=== PATIENT | female | born 1955 | race Caucasian/White ===

== ENCOUNTER 2025-06-20 15:03 | Inpatient (IN) | payer MEDICARE, MEDICAID ==
[~2025-06-20] VITALS: Ht 160 cm; Wt 60.7 kg
--- NOTE | 2025-06-20 15:23 | ELECTROCARDIOGRAPH REPORT ---
[facility] Test Date: 2025-06-20 Test Time: 15:22:47 Pat Name: EROS LINO Department: [facility]-ER Patient ID: [facility]-[id number] Room: [place] [id number] Gender: F Historical Guide: : 1955 Requested By: CLARY ARANDA Order Number: [id number] Reading MD: Dr. ESTEFANI Titus Measurements Intervals [place] Rate: 62 P: 45 DC: 173 QRS: 88 QRSD: 99 T: -3 QT: 421 QTc: 428 Interpretive Statements Sinus rhythm Borderline right axis deviation Borderline repolarization abnormality Electronically Signed On 06-21-2025 13:09:[address] ESTEFANI Titus Please click the below link to view image of tracing.
[2025-06-20 15:43] LABS: MEAN PLATELET VOLUME 6.6 FL (7.4-10.4); RED CELL DISTRIBUTION WIDTH 13.7 % (11.5-14.5)
[2025-06-20 16:10] LABS: CREATININE 0.90 MG/DL (0.40-0.90); PRO BRAIN NATRIURETIC PEPTIDE 62 PG/ML (0-125); TOTAL CARBON DIOXIDE 27.1 MMOL/L (24-32); eCRCL 47 ML/MIN; eGFR 62 ML/MIN
--- NOTE | 2025-06-20 16:10 | RADIOLOGY REPORT ---
CHEST RADIOGRAPH Indication: CP Technique: Single frontal view of the chest was obtained Comparison: None FINDINGS: Lines and Tubes: None Lungs: No focal consolidation. Pleura: No effusion. No pneumothorax. Cardiomediastinal contours: Unremarkable Bones: No acute osseous abnormality. IMPRESSION: 1. No acute cardiopulmonary disease.
--- NOTE | 2025-06-20 18:51 | Physician Documentation ---
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 She happened to check her blood pressure at home which was markedly elevated. This is made her come in. She denies any chest pain or chest discomfort, denies any shortness a breath. This is unusual for her to feel the way she is feeling but she can not describe it in any particular discrete way. She has been seen her lining setter recently for manipulation of her blood pressure medications. She does not feel that her blood pressure medications are working out for her. No concern for tobacco, alcohol or illicit substances. Medication Reconciliation Allergies: Coded Allergies: [id number] Reductase Inhibitor (Verified Allergy, Unknown, ABD PAIN AND ELEVATED CREATININE, 06/20/25) Sulfa (Sulfonamide Antibiotics) (Verified Allergy, Unknown, HIVES, 06/20/25) Review of Systems ROS 10 point review of systems was performed and unless noted above in HPI is negative for acute process/complaint. Physical Exam Physical Exam Vital Signs: Temperature: 97.9, Source: Temporal, Heart Rate: 65, Respiratory Rate: 10, BP: 155/81, Pulse Oximetry: 99, Weight: 60.700 Oxygen Flow Rate: 0 Physical Exam GENERAL: Awake, alert, oriented, GCS 15, no apparent distress, non-toxic appearing, answers questions, follows commands appropriately. Examined in bed 14. HEENT: Atraumatic, normocephalic, pupils equal, extraocular muscles intact, sclerae anicteric, mucus membranes moist, oropharynx is clear, no stridor. NECK: supple, full active range of motion, trachea midline, no thyromegaly, no lymphadenopathy, no JVD. CARDIOVASCULAR: regular rate/rhythm, no murmurs/gallops/rubs, Pulses are 2+ in all extremities and symmetric. Capillary refill less than 2 seconds. PULMONARY: Nonlabored, good air movement ,no respiratory distress, speaking in full sentences, clear to auscultation bilaterally, no wheezing, no ronchi, no rales, no accessory muscle use. GASTROINTESTINAL: Soft, non-tender, non-distended, normal active bowel sounds, no organomegaly, no pulsatile masses, no CVA tenderness. NEUROLOGIC: Lucid with normal mental status. Normal facial symmetry. Moves all extremities symmetrically and with purpose. No truncal ataxia. Speech is fluid without evidence of dysarthria or aphasia, no focal deficits appreciated. MUSCULOSKELETAL: There is full range of motion of all extremities. There is no joint pain or joint swelling or joint erythema. There is no muscle pain or tenderness or swelling. EXTREMITIES: warm, well-perfused, no cyanosis, no clubbing, no edema, no acute deformities. Skin: warm, dry, no rashes or lesions, no jaundice, no petechiae orpurpura. No ecchymosis. PSYCHIATRIC: Normal affect, normal insight, normal concentration. Focused exam: [] Progress Results/Orders Results/Orders Vital Signs 06/20/25 06/20/25 06/20/25 06/20/25 15:14 16:36 16:55 16:55 Temp 97.9 Pulse 70 64 Resp 16 16 16 B/P (MAP) 161/89 177/89 (118) Pulse Ox 99 68 99 O2 Delivery Room Air* O2 Flow Rate 0 0 FiO2 N/A 06/20/25 17:49 Pulse 65 Resp 10 B/P (MAP) 155/81 (105) Pulse Ox 99 Laboratory Tests Test 06/20/25 15:26 06/20/25 17:30 White Blood Count 8.0 Red Blood Count 4.82 Hemoglobin 14.1 Hematocrit 40.5 Mean Corpuscular Volume 84.1 Mean Corpuscular Hemoglobin 29.3 Mean Corpuscular Hemoglobin Concent 34.9 Red Cell Distribution Width 13.7 Platelet Count 467 H Mean Platelet Volume 6.6 L Neutrophils (%) (Auto) 69.6 Lymphocytes (%) (Auto) 22.1 Monocytes (%) (Auto) 5.9 Eosinophils (%) (Auto) 1.3 Basophils (%) (Auto) 1.1 H Neutrophils # (Auto) 5.5 Lymphocytes # (Auto) 1.8 Monocytes # (Auto) 0.5 Eosinophils # (Auto) 0.1 Basophils # (Auto) 0.1 CBC Comment Sodium Level 137 Potassium Level 3.4 L Chloride Level 102 Carbon Dioxide Level 27.1 Anion Gap 8 Blood Urea Nitrogen 21 H Creatinine 0.90 Estimated GFR/1.73 m2 62 BUN/Creatinine Ratio 23.3 H Glucose Level 121 H Calcium Level 9.0 Troponin I High Sensitivity 190 *H 180 *H Pro-B-Type Natriuretic Peptide 62 Albumin 4.1 Chemistry Comments Troponin I High Sens Percent Delta 5 Troponin I Hi Sens Absolute Change -10 EKG/XRAY/CT/US/VASC/MRI EKG : Additional Comment EKG was obtained and interpreted by myself shows sinus rhythm of 62, normal W[place] interval, narrow QRS, no QT prolongation, normal axis, no STEMI. Medical Decision Making Additional information obtaine: N/A Findings Facility Status: ED Holds, RME process The plan was discussed with the patient, who demonstrates clear understanding of the plan and is in agreement with the plan unless otherwise noted in the chart. All questions have been answered, all concerns were addressed unless otherwise documented. I was available throughout their ED stay for frequent reassessment and questions. Differential Diagnoses (considered and possible or likely): [Differential for not feeling quite right in the elderly female who is fairly large and includes but not limited to hypoglycemia, electrolyte derangement, urinary tract infection with a pneumonia, occult bacteremia, ACS, CHF, unlikely to be PE, unlikely to be acute intracranial process, given history of hypertension, hypertensive urgency, hypertensive emergency with a without end-organ damage he had also been considered] ??Differential Diagnoses (considered and unlikely, not requiring evaluation currently): [No evidence of lateralizing signs to suspect a stroke] MDM Data Please see HPI for the following: Independent Historians and external Records Review. Historian: [Patient] Independent Historians: ?[None] Medication Management: [Reviewed medication list] Social History and determinants: [Reviewed] Please see the body of the note for the following: Any independent interpretations of ECG, imaging studies. All vitals signs/haemodynamics, ordered tests were independently reviewed and interpreted by myself. Nursing triage complaint and vitals reviewed, additional nursing notes were reviewed as available and I agree unless otherwise noted or documented in contradiction in the chart Vital Signs: Independently reviewed Labs: Independently interpreted Imaging: Independently interpreted Old Medical Records: Independently reviewed, see HPI for relevant summary and information Pulse Oximetry: [98%] interpreted as [normal on room air] by me [Pay Per Click Strategist: [Regular Rate, Regular rhythm, no ectopy, NSR] reviewed and interpreted by me] Additionally notably showing: [Hemodynamics reviewed. The patient is not febrile, not tachycardic, no evidence of hypotension. She does have quite significantly elevated blood pressure. Laboratory studies showed normal CBC, normal chemistry except for mild dehydration. Troponin is elevated twice. BNP is normal. Imaging was obtained showing no acute cardiopulmonary disease.] Tests considered but not ordered include: [Echocardiogram and stress test can be done on an inpatient basis] Social Determinants of Health Impact: Patient was evaluated in [facility], [facility] [place] to healthcare due to below par ratio of patient to medical providers. [] Comorbid Conditions Impacting Present Evaluation and Care/Treatment: [History of hypertension] Management Discussions with other Healthcare Providers: [Hospitalist regarding admission] Treatment and Disposition Medication Management (Given or considered): []. See EMR for details Consideration for Hospitalization/Escalation/Deescalation of Care: Admission for observation has been considered, and appears to be necessary for further management of her hypertensive emergency and elevated troponin ?ED Course:?[No significant clinical deterioration] ?Shared decision making:?[] Code status:?FULL Please see the full Electronic Medical Record for full details of nursing documentation, medications list, other records of complete past medical history and conditions, vital signs, laboratory studies, and any radiologic study interpretations by radiologists. Portions of this note were completed using [employer] dictation software and as a result there may exist minor errors in spelling. I have reviewed elements of past family and social history and agree as included in note. Differential Diagnosis See body of main note for differential diagnosis Departure Disposition: ADMITTED INPATIENT Admitted to Inpatient Unit: to hospitalist Impression: Primary Impression: Hypertensive emergency Additional Impression: Elevated troponin Referrals: NO PRIMARY CARE PROVIDER (PCP) Signature Scribe Signature: No scribe Attestation: The note accurately reflects work and decisions made by me.David Davidson, 06/20/25 18:51 DAVID DAVIDSON DO Jun 20, 2025 18:51
[2025-06-20] MEDS ORDERED: magnesium sulf-water 4G/100mL 100 ML IV PRN (19:20)
[2025-06-20] MEDS ORDERED: ondansetron/PF 4mg/2ml inj IV PRN (19:20)
[2025-06-20] MEDS ORDERED: magnesium Cl slow-release 64mg tablet PO PRN (19:20)
[2025-06-20] MEDS ORDERED: magnesium sulf-water 2g/50mL 50 ML IV PRN (19:20)
[2025-06-20] MEDS ORDERED: potassium Cl 40MEQ/1/2NS 520ml 520 ML IV PRN (19:20)
[2025-06-20] MEDS ORDERED: potassium Cl 20 mEq SR tablet PO PRN (19:20)
[2025-06-20 19:45] LABS: LEUKOCYTE ESTERASE ,URINE SMALL (Neg); NITRITES, URINE NEGATIVE (Neg); OCCULT BLOOD,URINE NEGATIVE (Neg); UA COLLECTION TYPE CLN CATCH MIDSTREAM
[2025-06-20] MEDS: PERFLUTREN PROTEIN-A MICROSPHR (Optison) 0.22 MG/ML 3ML VIAL IV ONE (19:51)
[2025-06-20 19:55] LABS: SQUAMOUS EPITHELIAL CELL,UR MODERATE /LPF (FEW)
[2025-06-20] MEDS: docusate sod 100mg capsule PO SCH (20:00)
[2025-06-20] MEDS: K and/or MAG REPLACEMENT MC SCH (20:01)
[2025-06-20] MEDS: potassium Cl 20 mEq SR tablet PO PRN (20:02)
[2025-06-20] MEDS ORDERED: IRBE150T34 PO (20:08)
[2025-06-20] MEDS ORDERED: HYDR12.55 PO (20:08)
--- NOTE | 2025-06-20 20:21 | HISTORY AND PHYSICAL-Residence ---
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 Patient stated she had an episode of chest tightness associated with dizziness this morning when she woke up. At the time she did not notice diaphoresis, palpitations, radiation. Chest tightness subsided within few minutes. And she felt dizzy throughout the morning however she did all her activities. Dizziness also subsided however she felt feeling weird, and measure her blood pressures at home which were around 190/100. Due to the high blood pressure concerns she came to the ER. Denies headache, vision changes, hematuria. She has hypertension for a long time, initially on losartan and hydrochlorothiazide and recently changed from losartan to valsartan and currently to be irbesartan 150 mg once daily. Patient felt like since the change in meds her blood pressure might not have been under good control. She is compliant with the medications Parts Counterperson is Dr. Saucedo and PCP [facility] Allergies: Coded Allergies: [id number] Reductase Inhibitor (Verified Allergy, Unknown, ABD PAIN AND ELEVATED CREATININE, 06/20/25) Sulfa (Sulfonamide Antibiotics) (Verified Allergy, Unknown, HIVES, 06/20/25) Past Medical History Past Medical History Hypertension Malignant melanoma treated Past Surgical History Surgical History Comment Footr surgery Ectopic surgery Past Social History Social History Comment non smoker, doesnt drink alcohol, no iilicit drug use use CBN gummy for insomnia lives by herself, independent for ADLs ROS ROS ROS Constitutional: Complaining of dizziness today morning HEENT: No blurring of the vision, No sore throat, epistaxis, tinnitus Cardiovascular: Complaining of intermittent chest tightness, no, palpitations, syncope. No pedal edema Respiratory: No sob, cough,, hemoptysis Gastrointestinal: No abdominal pain, nausea, vomiting. No diarrhea, constipation, melena. Genitourinary: No frquency, urgency, incontinence, nocturia. No dysuria, hematuria Musculoskeletal: No arthralgia, myalgia Endocrine: No fatigue, polydipsia, polyuria. No heat or cold intolerance Neurologic: No headache, vertigo. No weakness, numbness or tingling of extremities Psychiatric: No hallucinations/delusions, no anhedonia, no suicidal ideation\ Hematologic: No bleeding or bruises Reviewed in full. All negative except for pertinent positives in HPI Exam Vitals: Vital Signs Date Time Temp Pulse Resp B/P (MAP) Pulse Ox O2 Delivery O2 Flow Rate FiO2 06/20/25 19:02 70 12 170/85 (113) 98 0 06/20/25 16:55 Room Air* N/A 06/20/25 15:14 97.9 General: General: Pleasant elderly female, AAO x4, not in apparent distress Head: Normocephalic with an atraumatic Eyes: Pupils- 3mm, reacting to light, conjunctiva- anicteric Nose and throat: No polyps, septum- normal, no mucosal ulcers Neck: Supple, no lymphadenopathy, no carotid bruit Respiratory: No use of accessory muscles of respiration, Bilateral normal vesiscular breath sounds heard. No wheeze, rhochi or creps Cardiac: S1-S2 heard, rythm regular, no gallop/murmur Abdomen: non distended, no tenderness, no organomegaly, bowel sounds- heard Extremities: no clubbing, no pedal edema, no deformities, peripheral pulses- 2+ Skin: warm and dry, no rash, no purpura Neuro: No focal deficit, gross cranial nerve exam- normal Diagnostic Data Last Recorded Lab Results: 06/20/25 1526 06/20/25 1526 Advance Care Planning Advanced Care plannin - 30 Minutes (Code status is discussed with her and she opted for full code) Additional Plan 69-year-old female with past medical history of hypertension presented to the ER with chief complaints of feeling weird and high blood pressure. She had some chest tightness and dizziness which was subsided. ER course -blood pressures in the ER were in the range of 170-180/80-90. -EKG showed the sinus rhythm, mild right axis deviation, nonspecific ST-T changes in lead three and AVF -troponins x3, 190<< 180<< -chest x-ray normal Hypertension emergency -current blood pressures were in the range of 140/150,no significant difference between both arms -we will add metoprolol 12.5 mg q.12h, along with hydrochlorothiazide 12.5 mg once daily and irbesartan 150 mg once daily -monitor blood pressures, goal is to maintain between 130-160/80-110 in the next 24 hours -urinalysis is negative for proteinuria and hematuria no other end-organ damage except for type 2 IA -in view of relatively new uncontrolled blood pressures, ordered renal Doppler to look for any renal artery stenosis Type 2 IA -suspect elevated troponins likely secondary to type 2 IA, patient does not have any risk factors for CAD except for hypertension and no other typical symptoms of ACS, HEART-3 -type 2 IA likely secondary to demand ischemia -follow up with EKG in the a.m. and trend troponins -control blood pressure as mentioned above -follow up on 2D echo -follow up on lipid panel Hypokalemia -suspect likely secondary to hydrochlorothiazide use -potassium replacement per protocol Prediabetes A1c of six -educate the patient regarding carb controlled diet and exercise Code Status: Full code Line/tube: PIV DVT prophylaxis: Lovenox Nutrition: Heart healthy PT: Yes Prognosis: Guarded Disposition: Continue care in PCU, Fifi Judge MD IM PGY-3 resident Patient evaluated using HIPPA compliant AV device Agree with plan as discussed with the resident Steven Martinez MD Date of Service: Jun 20, 2025 Billing Provider: STEVEN MARTINEZ MD, HARIVAR[place], [facility] Jun 20, 2025 20:21 STEVEN MARTINEZ MD Jun 20, 2025 21:44
[2025-06-20 21:00] VITALS: BP 149/77; PULSE 56; RESP 16; TEMP 98; O2SAT 98
[2025-06-20 21:22] VITALS: RESP 16; O2SAT 98
[2025-06-20 22:00] VITALS: BP 151/75; PULSE 54; RESP 16; TEMP 97; O2SAT 97
[2025-06-21] VITALS (9 sets, daily range): BP systolic 103–129; BP diastolic 52–85; PULSE 51–65; RESP 10–16; TEMP 97.5–98.8; O2SAT 95–99
[2025-06-21 06:14] LABS: MEAN PLATELET VOLUME 6.7 FL (7.4-10.4); RED CELL DISTRIBUTION WIDTH 13.4 % (11.5-14.5)
[2025-06-21 06:57] LABS: CREATININE 0.90 MG/DL (0.40-0.90); TOTAL CARBON DIOXIDE 26.0 MMOL/L (24-32); eCRCL 47 ML/MIN; eGFR 62 ML/MIN
[2025-06-21] MEDS: metoprolol tartrate 12.5mg (1/2 tablet) PO SCH (08:44)
[2025-06-21] MEDS: enoxaparin 40mg/0.4ml syringe SUBCUT SCH (08:53)
[2025-06-21] MEDS ORDERED: metoprolol tartrate 1mg/ml inj IV PRN (14:30)
[2025-06-21] MEDS ORDERED: aminophylline 250mg/10ml inj. IV PRN (14:30)
[2025-06-21 15:05] LABS: CHOL/HDL RATIO 3.4 (0.00-4.99); LDL CHOLESTEROL 159 MG/DL (50-100)
--- NOTE | 2025-06-21 17:58 | RADIOLOGY REPORT ---
[place] EXAMINATION: MR MRI HEAD INDICATION: Dizziness COMPARISON: None TECHNIQUE: Multiplanar, multisequence magnetic resonance imaging of the brain was performed without the use of intravenous contrast. FINDINGS: No evidence of acute or remote infarct. No intracranial hemorrhage. No mass effect. There is periventricular/deep white matter T2/FLAIR hyperintensity is nonspecific, but most commonly associated with chronic microvascular disease. There are mild involutional changes with compensatory prominence of the ventricles and sulci. Flow voids in the major intracranial vessels are maintained. No abnormality of the orbits. Paranasal sinuses and mastoid air cells are clear. No abnormality of the visualized osseous structures and extracranial soft tissues. IMPRESSION: 1. No acute infarct, intracranial hemorrhage, mass effect, or hydrocephalus. 2. Age-related involutional changes. Chronic microvascular changes.
--- NOTE | 2025-06-21 18:00 | PROGRESS NOTE- Residence ---
Progress Note - Resident Providers to CC Resident Creating Document: ZULEYKA MEDRANO RES ~ Central Line/PICC still needed: N\A Dillon-Non Protocol Dillon Indications Met/Not Met: F/C Indications Not Met Antibiotic Timeout Antibiotic Ordered?: No Subjective Patient examined bedside. Comfortably resting, no acute symptoms overnight. Objective Vital Signs Date Time Temp Pulse Resp B/P (MAP) Pulse Ox O2 Delivery O2 Flow Rate FiO2 06/21/25 15:00 97.8 56 14 129/70 (89) 99 Room Air 06/21/25 08:00 0.0 N/A Result Diagram: 06/21/25 0535 06/21/25 0535 General: Well alert, well oriented, not confused, not agitated, not in acute distress, well cooperated during the physical. HEENT: Conjunctive are pink, sclerae clear, no icterus, pupil is equal in both sides, reactive to light, no ear discharge, no pharyngeal erythema or an edema. Neck: Supple, no JVD, no lymphadenopathy and thyromegaly. Chest: Equal air entry on both lungs, no added sounds, no wheeze. Cardiovascular: S1-S2 regular sinus rhythm and, regular rate, no gallops, no rubs, no murmurs Abdomen: No visible peristalsis, Bowel sounds present on auscultation, soft, nontender, no guarding, no rigidity Extremities: No obvious deformities, no pitting edema bilaterally, capillary refill intact, peripheral pulsations are intact on both sides Central Nervous System: No focal neurological deficits, no motor or sensory weakness in all 4 extremities, could move all 4 extremities, 2+ deep tendon reflexes, negative Babinski. Musculoskeletal: No joint swelling, deformities, inflammations, and no scoliosis and back tenderness Skin: Warm and dry. Counseling Services Smoking & Tobacco Cessation: N/A Advance Care Planning Advanced Care planning: N/A Plan Plan Assessment: This is a 69-year-old female with past medical history of hypertension, who is here for evaluation of dizziness, high blood pressure and troponinemia. Her presentation ruled out pulmonary embolism with a Wells score of 0. Does not fit the clinical picture of pericarditis. We want to further investigate neurological causes which could be a TIA causing the triad of symptoms with dizziness her blood pressure and troponinemia, hence she will be undergoing an MRI with carotid Doppler. We will also want to rule out cardiac causes in view of 1 episode of chest pressure. She is scheduled for a Lexiscan today. Plan: Hypertensive urgency with troponinemia To rule out TIA and cardiac ischemia. Complaints of dizziness, chest pressure currently asymptomatic. Vitals: Bradycardia after administration of metoprolol. . Troponins are elevated at 1 80s. EKG normal, no ischemic changes. Chest x-ray unremarkable CBC CMP normal, normal urinalysis Blood pressure under control with losartan 50 mg, hydrochlorothiazide 12.5 mg, metoprolol 12.5 mg. We will change her blood pressure medication to losartan 50 mg and amlodipine 5 mg in view of bradycardia. Awaiting MRI head and ultrasound of carotids to rule out TIA, which could explain high blood pressure, troponinemia and dizziness. Ordered Lexiscan to rule out ischemic process. Continue telemetry, monitor vitals. Dyslipidemia ASCVD score of 7.9%. Recommended moderate to high dose statin. History of myopathy with rhabdomyolysis with statin, we will consider Zetia. Code status: Full code DVT prophylaxis: Heparin 5000 subcutaneous q.8h Analgesia/sedation: Morphine/Holiday Line/tube: PIV GI prophylaxis: None Nutrition: Heart healthy PT: Ordered. Prognosis: Guarded Disposition: Continue medical management and telemetry monitoring. Stress test tomorrow. Zuleyka Medrano MD PGY1, Internal Medicine [facility] Date of Service: Jun 21, 2025 Billing Provider: PRUDENCIO ARRIAGA MD Common Visit Codes: 40054-[id number] INP/OBS CARE(HIGH) ZULEYKA MEDRANO, RES Jun 21, 2025 18:00 PRUDENCIO ARRIAGA MD Jun 23, 2025 07:57
[2025-06-22] VITALS (12 sets, daily range): BP systolic 109–166; BP diastolic 52–76; PULSE 53–106; RESP 14–18; TEMP 97.8–98.7; O2SAT 97–99
[2025-06-22 07:09] LABS: MEAN PLATELET VOLUME 6.6 FL (7.4-10.4); RED CELL DISTRIBUTION WIDTH 13.3 % (11.5-14.5)
[2025-06-22 07:22] LABS: CREATININE 0.94 MG/DL (0.40-0.90); TOTAL CARBON DIOXIDE 28.7 MMOL/L (24-32); eCRCL 45 ML/MIN; eGFR 59 ML/MIN
--- NOTE | 2025-06-22 09:04 | VASCULAR REPORT ---
CLINICAL HISTORY: Dizziness TECHNIQUE: Adams-scale, Color and Duplex Doppler imaging of the bilateral carotid systems was performed. COMPARISON: None Findings: Right Carotid system: There is plaque present in the right carotid system. Left Carotid system: There is plaque present in the left carotid system. The following flow velocities were obtained (cm/sec). Right Carotid System: ICA PSV: 114 cm/sec ICA PDV: 45 cm/sec ICA/CCA Ratio: 1.3 Left Carotid System: ICA PSV: 104 cm/sec ICA PDV: 41 cm/sec ICA/CCA Ratio: 1.7 The right and left common carotid and external carotid arteries are patent. There is antegrade flow in both vertebral arteries and external carotid arteries. IMPRESSION: LESS THAN 50% RIGHT ICA NARROWING. LESS THAN 50% LEFT ICA NARROWING. Estimation of carotid stenosis is based on velocity parameters that correlate the residual internal carotid diameter with that of the more distal vessel in accordance with the [place] Symptomatic Carotid Endarterectomy Trial (NASCET).
[2025-06-22] MEDS: regadenoson 0.4mg/5ml syringe IV PRN (10:24)
--- NOTE | 2025-06-22 11:30 | RADIOLOGY REPORT ---
HISTORY: Chest discomfort TECHNIQUE: At peak stress, 32.2 mCi of sestamibi was administered intravenously. Soon thereafter, gated SPECT imaging of the heart was performed with the patient in the supine position. At rest, 8.4 mCi of sestamibi was administered intravenously. Soon thereafter, gated SPECT imaging of the heart was performed with the patient in the supine position. FINDINGS: The left ventricular myocardium demonstrates uniform radiotracer distribution, without perfusion defect. The left ventricular cavity is normal in size. Calculated LVEF is 65 %. No segmental wall motion abnormality. IMPRESSION: NORMAL MYOCARDIAL PERFUSION EXAM. LVEF 65 %.
--- NOTE | 2025-06-22 13:07 | RADIOLOGY REPORT ---
CTA Chest with intravenous contrast INDICATION: chest pressure, elevated troponin COMPARISON: DI CHEST,SINGLE VIEW on DOS: 06/20/25 TECHNIQUE: Multidetector spiral CTA of the chest was performed of the chest with intravenous contrast. PULMONARY ANGIOGRAPHY PROTOCOL was utilized using a bolus- tracking technique centered on the main pulmonary artery. Axial, coronal and sagittal multiplanar and MIP reformats were performed. Radiation Dose : 1. Chest: CTDI volume is 11 mGy. Dose-length product is 401.5 mGy*cm The dose indicators for CT are the volume Computed Tomography (CT) Dose Index (CTDIvol) and the Dose Length Product (DLP), and are measured in units of mGy and mGy-cm, respectively. These indicators are not patient dose, but values generated from the CT scanner acquisition factors. The report includes radiation exposure data for exposures received during this examination. Findings: Pulmonary artery: No pulmonary embolism Lower neck: Normal thyroid. Lungs: No focal consolidation, pleural effusion or pneumothorax. Mild biapical scarring. Heart/Vascular Structures: Normal heart size. No pericardial effusion. Coronary artery calcifications. Vascular calcifications of the aorta. Lymph Nodes: No adenopathy Pleura: No pleural effusion or significant pneumothorax. Musculoskeletal: No acute osseous abnormality. Degenerative changes of the spine. Soft tissues: Normal. Upper abdomen: Left upper pole renal cyst measures 4.5 cm. IMPRESSION: No pulmonary embolism. No acute thoracic finding.
[2025-06-22] MEDS ORDERED: LOSA50TA64 PO ×2 (13:56→14:12)
--- NOTE | 2025-06-22 16:26 | DISCHARGE SUMMARY-Residence ---
Discharge Summary Providers to CC Resident Creating Document: ZULEYKA TOBINREEMA ~ Discharge Summary Admission Diagnosis: HTN EMERGENCY Hospital Course DATE OF ADMISSION: 06/20/2025 DATE OF DISCHARGE: 06/22/2025 Discharge Diagnosis\Comment: Hypertensive urgency with troponinemia Type 2 [place] Hypertension Dyslipidemia Operations\Procedures: None Consultants: None Complications: None Condition on DC: Stable New Medications: Losartan Potassium (Losartan Potassium) 50 Mg Tablet 75 MG PO DAILY for 30 Days, #45 TAB TAKE 1-1/2 TABLETS EVERY DAY Discontinued Medications: Hydrochlorothiazide (Hydrochlorothiazide) 12.5 Mg Tablet 1 TAB PO DAILY Irbesartan (Irbesartan) 150 Mg Tablet 1 TAB PO DAILY Discharge Summary: History of present illness: 69-year-old female with past medical history of hypertension presented to the ER with chief complaints of dizziness and chest pressure. Chest pressure was not associated with chest pain, palpitation, leg swelling, syncope. NC started within a few minutes. Denies headache, vision changes, hematuria. She has history of hypotension, initially on losartan and hydrochlorothiazide. Recently change medication to losartan and hydrochlorothiazide. Since then she has had frequent readings of high blood pressure. She is compliant with her medication. Nursery Worker is Dr. Saucedo and PCP [facility]. Hospital course: The patient was given 1 dose of metoprolol 25 mg p.o. to control blood pressure. She underwent cardiac ischemic workup in view of her high blood pressure, chest pressure and troponinemia. Lexiscan was normal. She underwent stroke workup with MRI brain and carotid ultrasound in view of dizziness and high blood pressure. Which also turned out to be negative. Pulmonary embolism was ruled out with CTA chest, normal D-dimer levels. Her lab work including ESR, TSH, CPK was in the normal range. Her blood pressure medication was changed back to her previous medication, we continued losartan in the hospital which seemed to control her blood pressure well. She is hemodynamically stable and symptomatically better and hence being discharged with the following instructions. Vital Signs Date Time Temp Pulse Resp B/P (MAP) Pulse Ox O2 Delivery O2 Flow Rate FiO2 06/22/25 13:44 62 138/73 (94) 06/22/25 11:15 98.1 15 99 Room Air 06/22/25 08:00 0.0 N/A Laboratory Tests Test 06/20/25 16:35 06/20/25 17:30 06/21/25 05:35 06/22/25 06:42 Urine Specimen Description Cln catch midstream Urine Color Yellow Urine Clarity Clear Urine pH 5.5 Urine Specific Marion 1.010 Urine Protein Negative mg/dl Urine Glucose (UA) Negative mg/dl Urine Ketones Negative mg/dl Urine Occult Blood Negative Urine Nitrite Negative Urine Bilirubin Negative Urine Urobilinogen 0.2 E.U/dL Urine Leukocyte Esterase Small Urine RBC 0-2 /HPF Urine WBC 0-4 /HPF Urine Squamous Epithelial Cells Moderate /LPF Urine Bacteria 1+ /HPF Urine Culture Indicated Indicated Volume Urine Centrifuged 10 ml Urine Comment Troponin I High Sensitivity 180 ng/L 186 ng/L 171 ng/L Troponin I High Sens Percent Delta 5 % 3 % 8 % Troponin I Hi Sens Absolute Change -10 ng/L 6 ng/L -15 ng/L White Blood Count 7.7 X10'3 6.8 X10'3 Red Blood Count 4.67 X10'6 4.81 X10'6 Hemoglobin 13.8 g/dl 14.1 g/dl Hematocrit 39.6 % 40.8 % Mean Corpuscular Volume 84.7 FL 84.7 FL Mean Corpuscular Hemoglobin 29.6 PG 29.2 PG Mean Corpuscular Hemoglobin Concent 34.9 g/dL 34.5 g/dL Red Cell Distribution Width 13.4 % 13.3 % Platelet Count 435 X10'3 416 X10'3 Mean Platelet Volume 6.7 FL 6.6 FL Neutrophils (%) (Auto) 68.4 % 67.2 % Lymphocytes (%) (Auto) 20.6 % 22.2 % Monocytes (%) (Auto) 7.2 % 6.5 % Eosinophils (%) (Auto) 2.8 % 2.9 % Basophils (%) (Auto) 1.0 % 1.2 % Neutrophils # (Auto) 5.3 X10'3 4.6 X10'3 Lymphocytes # (Auto) 1.6 X10'3 1.5 X10'3 Monocytes # (Auto) 0.6 X10'3 0.4 X10'3 Eosinophils # (Auto) 0.2 X10'3 0.2 X10'3 Basophils # (Auto) 0.1 X10'3 0.1 X10'3 CBC Comment Sodium Level 141 MMOL/L 140 MMOL/L Potassium Level 4.7 MMOL/L 3.7 MMOL/L Chloride Level 106 MMOL/L 104 MMOL/L Carbon Dioxide Level 26.0 MMOL/L 28.7 MMOL/L Anion Gap 9 7 Blood Urea Nitrogen 18 MG/DL 22 MG/DL Creatinine 0.90 MG/DL 0.94 MG/DL Estimated GFR/1.73 m2 62 ML/MIN 59 ML/MIN BUN/Creatinine Ratio 20.0 23.4 Glucose Level 109 MG/DL 111 MG/DL Calcium Level 9.2 MG/DL 8.9 MG/DL Magnesium Level 2.2 MG/DL 1.9 MG/DL Total Bilirubin 0.6 MG/DL 0.5 MG/DL Aspartate Amino Transf (AST/SGOT) 16 U/L 12 U/L Alanine Aminotransferase (ALT/SGPT) 22 U/L 25 U/L Alkaline Phosphatase 53 IU/L 53 IU/L Total Protein 7.4 G/DL 7.5 G/DL Albumin 3.6 G/DL 3.7 G/DL Globulin 3.8 G/DL 3.8 G/DL Albumin/Globulin Ratio 0.9 1.0 Triglycerides Level 77 MG/DL Cholesterol Level 243 MG/DL LDL Cholesterol 159 MG/DL HDL Cholesterol 71 MG/DL Cholesterol/HDL Ratio 3.4 Chemistry Comments Erythrocyte Sedimentation Rate 6 MM/HR Total Creatine Kinase 85 U/L Thyroid Stimulating Hormone (TSH) 1.43 ulU/ml Test 06/22/25 11:41 D-Dimer 0.24 MG/L FEU D-Dimer Comment Imaging: Chest x-ray: No acute cardiopulmonary disease Echocardiogram: Overall LVEF is 70%. Normal LV size and wall thickness. Overall systolic function is hyperdynamic. RV is normal size and function. Estimated PA systolic pressure of 41 mm of mercury Trileaflet AV appears mildly sclerotic without stenosis. No insufficiency by color and spectral flow Doppler. Mild MV annular calcification without stenosis. Trace regurgitation by color and spectral flow Doppler. TV appears structurally normal with trace regurgitation by color and spectral flow Doppler. Normal PV without stenosis, physiologic insufficiency by color and spectral flow Doppler. Normal pericardium. No effusion. Head MRI: 1. No acute infarct, intracranial hemorrhage, mass effect, or hydrocephalus. 2. Age-related involutional changes. Chronic microvascular changes. Carotid ultrasound: LESS THAN 50% RIGHT ICA NARROWING. LESS THAN 50% LEFT ICA NARROWING. Lexiscan: NORMAL MYOCARDIAL PERFUSION EXAM. LVEF 65 %. Chest CTA: No pulmonary embolism. No acute thoracic finding. Physical examination on discharge: General: Well alert, well oriented, not confused, not agitated, not in acute distress, well cooperated during the physical. HEENT: Conjunctive are pink, sclerae clear, no icterus, pupil is equal in both sides, reactive to light, no ear discharge, no pharyngeal erythema or an edema. Neck: Supple, no JVD, no lymphadenopathy and thyromegaly. Chest: Equal air entry on both lungs, no added sounds, no wheeze. Cardiovascular: S1-S2 regular sinus rhythm and, regular rate, no gallops, no rubs, no murmurs Abdomen: No visible peristalsis, Bowel sounds present on auscultation, soft, nontender, no guarding, no rigidity Extremities: No obvious deformities, no pitting edema bilaterally, capillary refill intact, peripheral pulsations are intact on both sides Central Nervous System: No focal neurological deficits, no motor or sensory weakness in all 4 extremities, could move all 4 extremities, 2+ deep tendon reflexes, negative Babinski. Musculoskeletal: No joint swelling, deformities, inflammations, and no scoliosis and back tenderness Skin: Warm and dry. Discharge instructions: Take losartan 75 mg p.o. daily Follow up with the primary care physician in 2 weeks. Talk to her primary care physician about strict blood pressure control. Discussed with the medical operations supervisor that the recent change in medication 2 months ago has not been efficient in controlling blood pressure. Follow up with the medical operations supervisor for lipid control. We will UTI immediately in case of any acute emergencies including chest pain, palpitation, shortness of breath, dizziness, leg swelling, syncope. *Problems/Diagnosis: (1) Elevated troponin Status: Acute (2) Hypertensive emergency Status: Acute Total Time Spent on D/C: > 30 Minutes Counseling Services Smoking & Tobacco Cessation: N/A Date of Service: Jun 22, 2025 Billing Provider: PRUDENCIO ARRIAGA MD Common Visit Codes: 18981-VCX/OBS DISCH DAY >30min ZULEYKA TOBIN, RES Jun 22, 2025 16:26 PRUDENCIO ARRIAGA MD Jun 23, 2025 07:58
--- NOTE | 2025-06-23 17:12 | CARDIOLOGY REPORT ---
APPROVED REPORT EXAM: Comprehensive 2D, Doppler, and color-flow Echocardiogram. Patient Location: [address] Heart Rate: 60's bpm Rhythm: SINUS Indications ANGINA HYPERTENSION Supervisor Cook Room: Bell PAEZ MD Previous echo: NONE AVAILABLE (AFTER HOURS) 2D Dimensions RVDd 3.1 cm IVSd 1.0 (0.7-1.1cm) LVDd 4.1 cm PWd 1.0 (0.7-1.1cm) IVSs 1.2 (0.8-1.2cm) LVDs 2.6 (2.5-4.0cm) PWs 1.2 (0.8-1.2cm) LVOT Diameter 2.16 (1.8-2.4cm) LVEF(%) 66.4 (>50%) FS (%) 36.3 % SV 51.8 ml CO 3.2 L/min M-Mode Dimensions Left Atrium(MM) 3.67 (2.5-4.0cm) Aortic Root 3.50 (2.2-3.7cm) Aortic Cusp Exc 1.85 (1.5-2.0cm) Aortic Valve AoV Peak Sherman. 126.1 cm/s AoV VTI 24.4 cm AO Peak GR. 6.4 mmHg AO Mean GR. 3 mmHg LVOT VTI 20.41 cm LVOT Peak Sherman. 104.0 cm/s JEANCARLOS(VTI)/BSA 3.06 cm2/m2 JEANCARLOS (VTI) 3.06 cm2 AV DI 0.84 % Mitral Valve MV E Velocity 69.5 cm/s MV Peak Gr. 1 mmHg MV DECEL TIME 292 ms MV A Velocity 63.1 cm/s MV PHT 68 ms E/A Ratio 1.1 MVA (PHT) 3.24 cm2 MV VMax 57.8 cm/s TDI Lateral E' P. V 7.79 cm/s E/Lateral E' 8.9 Pulmonary Valve PAEDP 15.55 mmHg Tricuspid Valve TR P. Velocity 276 cm/s RAP ESTIMATE 10 mmHg TR Peak Gr. 31 mmHg RVSP 41 mmHg Pulmonary Vein S1 Velocity 72.7 cm/s D2 Velocity 71.8 cm/s PVa Velocity 44.8 cm/s PVa Duration 144 msec LEFT VENTRICLE Normal LV size and wall thickness. Overall systolic function is hyperdynamic. Overall LVEF is 70%. RIGHT VENTRICLE RV is normal size and function. Estimated PA systolic pressure of 41 mm of mercury ATRIA The left atrium size is normal. AORTIC VALVE Trileaflet AV appears mildly sclerotic without stenosis. No insufficiency by color and spectral flow Doppler. MITRAL VALVE Mild MV annular calcification without stenosis. Trace regurgitation by color and spectral flow Doppler. TRICUSPID VALVE TV appears structurally normal with trace regurgitation by color and spectral flow Doppler. PULMONIC VALVE Normal PV without stenosis, physiologic insufficiency by color and spectral flow Doppler. GREAT VESSELS The aortic root is normal in size. PERICARDIUM Normal pericardium. No effusion. Other Information Study Quality: Adequate Conclusion Normal LV size and wall thickness. Overall systolic function is hyperdynamic. Overall LVEF is 70%. RV is normal size and function. Estimated PA systolic pressure of 41 mm of mercury Trileaflet AV appears mildly sclerotic without stenosis. No insufficiency by color and spectral flow Doppler. Mild MV annular calcification without stenosis. Trace regurgitation by color and spectral flow Doppler. TV appears structurally normal with trace regurgitation by color and spectral flow Doppler. Normal PV without stenosis, physiologic insufficiency by color and spectral flow Doppler. Normal pericardium. No effusion.
== END 2025-06-22 14:39 | disposition home or self-care (01) | DRG 282 ==
LOC: ER 15:04 → ED HOLD 19:19 → UNDOADMIN 19:19 → ED HOLD 19:23 → EDBEDREQSVC 20:28 → ED HOLD 21:11 → PCU 3S 21:11 → UNDODISIN 06-22 14:39
PROVIDERS: ADMIT Internal Medicine; ATTEND Internal Medicine
PROC: 4A02XM4 Measurement of Cardiac Total Activity, External Approach (ICD-10-PCS; principal; 2025-06-22)
PROC: 3E073KZ Introduction of Other Diagnostic Substance into Coronary Artery, Percutaneous Approach (ICD-10-PCS; 2025-06-22)
PROC: B32T1ZZ Computerized Tomography (CT Scan) of Left Pulmonary Artery using Low Osmolar Contrast (ICD-10-PCS; 2025-06-22)
PROC: B3201ZZ Computerized Tomography (CT Scan) of Thoracic Aorta using Low Osmolar Contrast (ICD-10-PCS; 2025-06-22)
PROC: B32S1ZZ Computerized Tomography (CT Scan) of Right Pulmonary Artery using Low Osmolar Contrast (ICD-10-PCS; 2025-06-22)
DX: I16.1 Hypertensive emergency (principal); I21.A1 Myocardial infarction type 2; I10 Essential (primary) hypertension; E78.5 Hyperlipidemia, unspecified; Z88.8 Allergy status to other drugs, medicaments and biological substances; R73.03 Prediabetes; E87.6 Hypokalemia
CPT/HCPCS: 36415; 70551; 71045; 71275; 78452; 80048; 80053; 80061; 81001; 82550; 83036; 83735; 83880; 84443; 84484; 85025; 85379; 85651; 87081; 87088; 93005; 93017; 93306; 93880; 99285; A9500; G0378; J1650; J2785; Q0177; Q9967